=== PATIENT | female | born 1995 | race Caucasian/White ===

== ENCOUNTER 2021-09-09 17:01 | Emergency (ER) | payer SELFPAY ==
[2021-09-09] MEDS ORDERED: CEPHALEXIN500 M1 PO (17:34)
[2021-09-09] MEDS ORDERED: IBUPROFEN600 MG PO (17:34)
[2021-09-09] MEDS ORDERED: BACTROBAN OINT22 GM EXT (17:34)
== END 2021-09-09 17:58 | disposition home or self-care (01) ==
LOC: ER1 17:01
DX: T24.202A Burn of second degree of unspecified site of left lower limb, except ankle and foot, initial encounter (principal); T24.201A Burn of second degree of unspecified site of right lower limb, except ankle and foot, initial encounter; I10 Essential (primary) hypertension; X08.8XXA Exposure to other specified smoke, fire and flames, initial encounter
CPT/HCPCS: 16020; 90471; 90715; 99283